=== PATIENT | female | born 1980 | race Caucasian/White ===

== ENCOUNTER → 2018-04-03 | Day surgery (SDC) | payer MEDICAID, OTHER ==
[~2018-04-03] VITALS: Ht 160 cm; Wt 54.4 kg
[~2018-04-03] MED LIST: DEXAMETHASONE 10 MG/ML (DECADRON) 1 ML VIAL ONE; LACTATED RINGERS 1,000 ML IV PRN; LIDOCAINE PF 2% 5 ML (XYLOCAINE) VIAL ONE; MIDAZOLAM 2 MG/2 ML (VERSED) VIAL ONE; NS (IVPB) 250 ML ONE; NS (IVPB) 50 ML ONE; NS IV 1000 ML 1,000 ML IV SCH; NS IV 1000 ML 2,000 ML ONE; ONDANSETRON 4 MG/2 ML (SDV) Z0FRAN IVP PRN; ONDANSETRON 4 MG/2 ML (SDV) Z0FRAN ONE; PHENYLEPHRINE 100 MCG/ML 10 ML (ANESTHESIA) SYR ONE; PHENYLEPHRINE INJ 10 MG/ML (NEO-SYNEPHRINE 1%) ONE; PROPOFOL INJECTION 50 ML IV ONE; ROCURONIUM 10 MG/ML 5 ML SYRINGE IV ONE; SEVOFLURANE (ULTANE) 15 ML INHAL SOLN ONE; TRANEXAMIC ACID 100 MG/ML 10 ML INJECTION IV ONE; TRANEXAMIC ACID INJECTION 1,000 MG in D5W 100 ML IVPB 100 ML IV ONE; TRANEXAMIC ACID INJECTION 1,000 MG in NS (IVPB) 250 ML IV SCH; ceFAZolin 1,000 MG/10 ML (ANCEF) VIAL IV ONE; ceFAZolin 1,000 MG/10 ML (ANCEF) VIAL ONE; fentaNYL INJECTION 100 MCG/2 ML AMP ONE; morphine INJ 10 MG/ML 1ML (SYR OR VIAL) IVP ONE; proPOfol 200 MG/20 ML (DIPRIVAN) VIAL IV ONE
[2018-04-03 16:46] LABS: HEMOGLOBIN 12.7 G/DL (11.5-16.0); MEAN PLATELET VOLUME 8.7 FL (7.4-10.4); RED BLOOD COUNT 3.87 10^6/uL (4.35-5.85); RED CELL DISTRIBUTION WIDTH 11.9 % (10.0-14.5)
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
[2018-04-03 17:05] LABS: ALANINE AMINOTRANSFERASE 29 U/L (0-55); ALBUMIN 4.6 GM/DL (3.2-4.5); ALKALINE PHOSPHATASE 77 U/L (40-136); BILIRUBIN,DIRECT 0.4 MG/DL (0.0-0.3); BILIRUBIN,INDIRECT 0.5 MG/DL; BILIRUBIN,TOTAL 0.9 MG/DL (0.1-1.0); BUN/CREATININE RATIO 22; CALCIUM 9.5 MG/DL (8.5-10.1); CARBON DIOXIDE 15 MMOL/L (21-32); CHLORIDE 106 MMOL/L (98-107); CREATININE SERUM 0.87 MG/DL (0.60-1.30); GFR ESTIMATED > 60; GLUCOSE 133 MG/DL (70-105); MAGNESIUM 2.7 MG/DL (1.8-2.4); PHOSPHORUS 4.1 MG/DL (2.3-4.7); POTASSIUM 3.5 MMOL/L (3.6-5.0); SODIUM 142 MMOL/L (135-145); TOTAL PROTEIN 7.8 GM/DL (6.4-8.2)
[2018-04-03 17:06] LABS: BENZODIAZEPINES SCREEN URINE NEGATIVE (NEGATIVE); COCAINE SCREEN URINE NEGATIVE (NEGATIVE)
[2018-04-03 17:07] LABS: AMPHETAMINE SCREEN, URINE POSITIVE (NEGATIVE); BARBITURATE SCREEN URINE NEGATIVE (NEGATIVE); CANNABINOID SCREEN, URINE NEGATIVE (NEGATIVE); METHADONE STAT NEGATIVE (NEGATIVE); METHAMPHETAMINE SCREEN URINE S POSITIVE (NEGATIVE); OPIATE SCREEN URINE NEGATIVE (NEGATIVE); OXYCODONE STAT NEGATIVE (NEGATIVE); PROPOXYPHENE STAT NEGATIVE (NEGATIVE); TRICYCLIC ANTIDEPRESSANTS SCRE NEGATIVE (NEGATIVE)
[2018-04-03 17:16] VITALS: BP 128/89
[2018-04-03] MEDS: NS IV 1000 ML 1,000 ML IV PRN ×2 (17:20→17:45)
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
[2018-04-03 17:25] LABS: BACTERIA,URINE LARGE /HPF; BILIRUBIN,URINE NEGATIVE (NEGATIVE); CLARITY,URINE SLIGHTLY CLOUDY; COLOR,URINE YELLOW; GLUCOSE, URINE (UA) NEGATIVE (NEGATIVE); KETONES,URINE NEGATIVE (NEGATIVE); LEUKOCYTE ESTERASE ,URINE 1+ (NEGATIVE); NITRITE,URINE POSITIVE (NEGATIVE); PH,URINE 7 (5-9); PROTEIN,URINE 1+ (NEGATIVE); UROBILINOGEN,URINE 4 MG/DL (NORMAL)
[2018-04-03 17:34] LABS: FIBRIN DEGRADATION PRODUCTS 2.48 UG/ML (0.00-0.49); PROTHROMBIN TIME PATIENT 12.9 SEC (12.2-14.7)
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
== END | disposition short-term general hospital (02) ==
LOC: EDBD 16:30 → ER 16:30 → SDC 17:16
PROVIDERS: ATTEND Surgery
DX: S31.635A Puncture wound without foreign body of abdominal wall, periumbilic region with penetration into peritoneal cavity, initial encounter (principal); S36.892A Contusion of other intra-abdominal organs, initial encounter; N39.0 Urinary tract infection, site not specified; F15.90 Other stimulant use, unspecified, uncomplicated; W34.00XA Accidental discharge from unspecified firearms or gun, initial encounter
CPT/HCPCS: 36415; 51702; 71045; 80048; 80076; 80306; 80320; 81000; 83605; 83735; 84100; 84484; 84703; 85027; 85379; 85384; 85610; 85730; 86850; 86900; 86901; 86920; 93041; 96374; 96375; 99291